=== PATIENT | male | born 1995 | race American Indian/Alaskan Native ===

== ENCOUNTER 2021-07-04 21:57 | Emergency (ER) | payer SELFPAY | END 2021-07-05 02:20 | disposition left against medical advice (07) | LOC: ED 21:57 | DX: R52 Pain, unspecified (principal); Z53.21 Procedure and treatment not carried out due to patient leaving prior to being seen by health care provider ==

== ENCOUNTER 2021-12-09 11:29 | Emergency (ER) | payer SELFPAY ==
--- NOTE | 2021-12-09 11:54 | Emergency Department Report ---
ED Chest Pain HPI - General Chief Complaint: Chest Pain Stated Complaint: LEFT ARM AND SHOULDER PAIN Time Seen by Provider: 12/09/21 11:52 Source: patient Mode of arrival: Ambulatory Limitations: No Limitations - History of Present Illness Initial Comments: 26-year-old -[place] male presents emerged department complaining of chest pain from the left side radiating across the chest to the mid chest and a sharp achy fashion of unknown etiology. Initially occurred while he was smoking and since continue to wax and wane since the onset associated with some vague shortness of breath. Reports no hemoptysis no hematemesis hematochezia, no fever, chills, sweats. No abdominal pain, no diarrhea no weight loss no foreign travel, no lower extremity swelling no pre-existing cardiopulmonary issues. MD Complaint: chest pain Onset: during rest Pain Location: left chest Severity: mild, moderate Quality: aching, sharp Improves With: nothing Worsens With: nothing re: dyspnea. denies: nausea, vomting, diaphoresis Other Symptoms: denies: syncope, rash, acid taste in mouth, palpitations, burping Treatments Prior to Arrival: other (motrin) - Related Data On Oral Contraceptives: No Previous Rx's Medication Instructions Recorded Last Taken Type Ketorolac [Toradol] 10 mg PO Q6H PRN #10 12/09/21 Unknown Rx Allergies Allergy/AdvReac Type Severity Reaction Status Date / Time No Known Allergies Allergy Unverified 12/09/21 11:44 Heart Score - HEART Score History: Slightly suspicious EKG: Normal Age: < 45 Risk factors: 1-2 risk factors Troponin: < normal limit HEART Score: 1 - EKG Read Time Time EKG Completed: 11:52 EKG Read Time: 11:57 ED Review of Systems ROS: Stated complaint: LEFT ARM AND SHOULDER PAIN Other details as noted in HPI Comment: All other systems reviewed and negative ED Past Medical Hx - Social History Smoking Status: Never Smoker Substance Use Type: Marijuana - Medications Home Medications: Home Medications Medication Instructions Recorded Confirmed Last Taken Type Ketorolac [Toradol] 10 mg PO Q6H PRN #10 12/09/21 Unknown Rx ED Physical Exam - General Limitations: No Limitations General appearance: alert, in no apparent distress - Head Head exam: Present: atraumatic, normocephalic - Eye Eye exam: Present: normal appearance - ENT ENT exam: Present: mucous membranes moist - Neck Neck exam: Present: normal inspection, full ROM - Respiratory Respiratory exam: Present: normal lung sounds bilaterally. Absent: respiratory distress, chest wall tenderness - Cardiovascular Cardiovascular Exam: Present: regular rate, normal rhythm. Absent: systolic murmur, diastolic murmur, rubs, gallop - GI/Abdominal GI/Abdominal exam: Present: soft, normal bowel sounds - Rectal Rectal exam: Present: deferred - Extremities Exam Extremities exam: Present: normal inspection - Back Exam Back exam: Present: normal inspection - Neurological Exam Neurological exam: Present: alert, oriented X3 - Psychiatric Psychiatric exam: Present: normal affect, normal mood - Skin Skin exam: Present: warm, dry, intact, normal color. Absent: rash ED Course Vital Signs 12/09/21 11:41 Temperature 98.5 F Pulse Rate 97 H Respiratory 18 Rate Blood Pressure 169/97 O2 Sat by Pulse 98 Oximetry JOHNSON score - Johnson Score Age > 65: (0) No Aspirin use within the Past 7 Days: (0) No 3 or more CAD Risk Factors: (0) No 2 or more Angina events in past 24 hrs: (0) No Known CAD with more than 50% Stenosis: (0) No Elevated Cardiac Markers: (0) No ST Deviation Greater than 0.5mm: (0) No JOHNSON Score: 0 ED Medical Decision Making - Lab Data Result diagrams: 12/09/21 12:24 12/09/21 12:24 - Radiology Data Radiology results: report reviewed Chest x-ray normal - Medical Decision Making This patient presents with chest pain that is very unlikely angina or acute coronary syndrome. The emergency department evaluation has not identified any cause for suspicion that this chest pain has a cardiac etiology. Based on their history, EKG (which showed no evidence of ischemia or infarction) and imaging, in addition to the patient's physical exam, I see no evidence at this time for a malignant etiology for the patient's chest pain. There is no acute evidence for pulmonary embolus, acute myocardial infarction, pneumothorax, Boerhaeve syndrome, cardiac tamponade, thoracic artery dissection, or any other emergent cardiac, pulmonary or aortic pathology. Given the low pre-test probability for cardiac etiology of chest pain and the absence of any sign of ischemia or infarction, discharge for outpatient follow-up and further evaluation is reasonable. I have explained to the patient that even though a cardiac problem is very unlikely, follow-up and further testing is required to reduce further the already small uncertainty that exists. Other life-threatening diagnoses have been considered. The patient understands the need to return immediately if their symptoms worsen or they develop any new symptoms, and not to engage in any significant exertional activity until follow-up is obtained. Critical care attestation.: If time is entered above; I have spent that time in minutes in the direct care of this critically ill patient, excluding procedure time. ED Disposition Clinical Impression: Chest pain Disposition: HOME / SELF CARE / HOMELESS Is pt being admited?: No Does the pt Need Aspirin: No Condition: Stable Instructions: Nonspecific Chest Pain, Adult Additional Instructions: You were evaluated emergency department today for chest pain. Your evaluation has shown no medicals conditions requiring emergent intervention at this time, however recommend that you follow-up with your primary care physician or your tower observer soon as possible for further testing as an outpatient. Please schedule an appointment for follow-up with your primary care physician as soon as possible. Return to emergency department if you expands worsening uncontrolled chest pain, shortness of breath, lightheadedness, feeling faint, nausea, vomiting or any other concerning symptoms. Prescriptions: Ketorolac [Toradol] 10 mg PO Q6H PRN #10 PRN Reason: Pain Referrals: JERRICA LOVE MD [Staff Physician] - 3-5 Days (Please follow-up with cardiology for possible stress test)
--- NOTE | 2021-12-09 12:26 | XRay Report ---
CHEST 2 VIEWS INDICATION / CLINICAL INFORMATION: Chest Pain. COMPARISON: None available. FINDINGS: SUPPORT DEVICES: None. HEART / MEDIASTINUM: No significant abnormality. LUNGS / PLEURA: No significant pulmonary abnormality. No significant pleural effusion. No pneumothora x. ADDITIONAL FINDINGS: No significant additional findings. IMPRESSION: 1. No acute abnormality of the chest. Signer Name: Santo Hopkins MD Signed: 12/09/2021 12:22 PM Workstation Name: [id number]
[2021-12-09 12:36] LABS: Basophils # (Auto) 0.1 K/mm3 (0.0-0.1); Eosinophils % (Auto) 0.2 % (0.0-4.3); Hematocrit 43.9 % (35.5-45.6); Lymphocytes # (Auto) 2.8 K/mm3 (1.2-5.4); Lymphocytes % (Auto) 40.2 % (13.4-35.0); Mean Corpuscular HGB Conc 34 % (32-34); Mean Corpuscular Volume 93 fl (84-94); Monocytes # (Auto) 0.8 K/mm3 (0.0-0.8); Monocytes % (Auto) 11.1 % (0.0-7.3); Platelet Count 356 K/mm3 (140-440); Red Blood Count 4.73 M/mm3 (3.65-5.03); Red Cell Distribution Width 12.7 % (13.2-15.2)
[2021-12-09 12:45] LABS: INR 0.88 (0.87-1.13)
[2021-12-09 13:05] LABS: Alanine Aminotransferase 27 units/L (7-56); Albumin 4.6 g/dL (3.9-5); BUN/Creatinine Ratio 8; Blood Urea Nitrogen 9 mg/dL (9-20); Hemolysis Index 6
[2021-12-09 16:37] VITALS: BP 170/90
--- NOTE | 2021-12-11 15:11 | Electrocardiograph Report ---
[facility] Test Date: 2021-12-09 Test Time: 11:45:24 Pat Name: GAURAV SMITH Department: Room: Gender: M [employer] Consultant: SADI : 1995 Requested By: YESICA VICTORIA Order Number: [id number] Reading MD: Oneil Blanca Measurements Intervals [place] Rate: 93 P: 60 DC: 165 QRS: 42 QRSD: 77 T: -4 QT: 332 QTc: 412 Interpretive Statements Sinus rhythm Left atrial enlargement No previous ECG available for comparison Electronically Signed On 12-11-2021 15:11:15 EDT by Oneil Blanca
== END 2021-12-09 16:37 | disposition home or self-care (01) ==
LOC: ED 11:29
DX: R07.9 Chest pain, unspecified (principal)
CPT/HCPCS: 36415; 71046; 80053; 84484; 85025; 85610; 93005; 99283

== ENCOUNTER 2022-02-23 16:02 | Emergency (ER) | payer SELFPAY ==
--- NOTE | 2022-02-23 16:36 | Event Note ---
ED Screening Note Date of service: 02/23/22 Time: 16:32 ED Screening Note: This initial assessment/diagnostic orders/clinical plan/treatment(s) is/are subject to change based on patients health status, clinical progression and re- assessment by fellow clinical providers in the ED. Further treatment and workup at subsequent clinical providers discretion. Patient/guardian urged not to elope from the ED as their condition may be serious if not clinically assessed and managed. Patient with chest pain for 2 months and worse for 4 days. No N/V/Diasphoresis. Tight with sharp twinges. 9/10 at worst 3/10 now. Took ASA 325 at 1pm and 3pm. No hx DM, HTN, HLD, CAD.+Obesity. MJ no tobacco. No stimulants. No FH CAD at age < 50. Initial orders include: My Active Orders 02/23/22 16:31 EKG (12 lead) Stat Complete Blood Count Auto Diff Stat Comprehensive Metabolic Panel Stat Lipase Stat Troponin T Stat XR chest routine 2V Urgent 02/23/22 16:32 Tech to do EKG .once
--- NOTE | 2022-02-23 17:00 | XRay Report ---
CHEST 2 VIEWS INDICATION / CLINICAL INFORMATION: Chest Pain. COMPARISON: 12/09/2021 FINDINGS: SUPPORT DEVICES: None. HEART / MEDIASTINUM: No significant abnormality. LUNGS / PLEURA: No significant pulmonary or pleural abnormality. No pneumothorax. ADDITIONAL FINDINGS: No significant additional findings. IMPRESSION: 1. No acute findings. Signer Name: Vikas Acevedo MD Signed: 02/23/2022 4:56 PM Workstation Name: [email or web address] [id number]
[2022-02-23 21:27] LABS: Basophils # (Auto) 0.1 K/mm3 (0.0-0.1); Basophils % (Auto) 0.8 % (0.0-1.8); Eosinophils # (Auto) 0.1 K/mm3 (0.0-0.4); Eosinophils % (Auto) 0.8 % (0.0-4.3); Hematocrit 44.8 % (35.5-45.6); Hemoglobin 15.2 gm/dl (11.8-15.2); Lymphocytes # (Auto) 3.8 K/mm3 (1.2-5.4); Lymphocytes % (Auto) 46.9 % (13.4-35.0); Mean Corpuscular HGB Conc 34 % (32-34); Mean Corpuscular Volume 93 fl (84-94); Monocytes # (Auto) 0.9 K/mm3 (0.0-0.8); Monocytes % (Auto) 11.6 % (0.0-7.3); Platelet Count 352 K/mm3 (140-440); Red Blood Count 4.83 M/mm3 (3.65-5.03)
[2022-02-23 21:42] LABS: Alanine Aminotransferase 28 units/L (7-56); Albumin 4.9 g/dL (3.9-5); BUN/Creatinine Ratio 7; Blood Urea Nitrogen 8 mg/dL (9-20); Hemolysis Index 6
--- NOTE | 2022-02-23 22:16 | Emergency Department Report ---
HPI - General Chief Complaint: Chest Pain Time Seen by Provider: 02/23/22 21:21 - HPI HPI: Room 42 The patient is a 26-year-old male present with a chief complaint of chest pain. Patient states he was he is intermittent left chest pain for the past 4 days. Patient describes the pain as a tightness with a sharp component. Patient denies shortness of breath, nausea/vomiting or diaphoresis with this pain. Patient denies cough or pleurisy. Patient denies history of fever. Patient denies any recent flights/long car trips. Patient currently gives his pain a score 7/10. Patient states he is never had a stress test or cardiac catheterization. Patient states he is unaware of any family history of premature heart disease ED Past Medical Hx - Past Medical History Previous Medical History?: No - Surgical History Past Surgical History?: No - Family History Family history: no significant - Social History Smoking Status: Never Smoker Substance Use Type: Marijuana - Medications Home Medications: Home Medications Medication Instructions Recorded Confirmed Last Taken Type Ketorolac [Toradol] 10 mg PO Q6H PRN #10 12/09/21 Unknown Rx Cyclobenzaprine [Flexeril] 10 mg PO TID PRN #14 02/23/22 Unknown Rx Famotidine [Pepcid] 20 mg PO BID #30 tablet 02/23/22 Unknown Rx ED Review of Systems ROS: Stated complaint: CHEST PAIN Other details as noted in HPI Constitutional: denies: diaphoresis, fever Eyes: denies: eye pain ENT: denies: throat pain Respiratory: denies: cough, shortness of breath Cardiovascular: chest pain Endocrine: no symptoms reported Gastrointestinal: denies: nausea, vomiting Genitourinary: denies: dysuria Musculoskeletal: denies: back pain Neurological: denies: headache Physical Exam - Physical Exam Vital Signs: Vital Signs 02/23/22 16:28 Temperature 98 F Pulse Rate 83 Respiratory 16 Rate Blood Pressure 155/99 [Left] O2 Sat by Pulse 100 Oximetry Physical Exam: GENERAL: The patient is well-developed well-nourished male sitting in chair not appearing to be in acute distress. [] HEENT: Normocephalic. Atraumatic. Extraocular motions are intact. Patient has moist mucous membranes. NECK: Supple. Trachea midline CHEST/LUNGS: Clear to auscultation. There is no respiratory distress noted. HEART/CARDIOVASCULAR: Regular. There is no tachycardia. There is no gallop rub or murmur. ABDOMEN: Abdomen is soft, nontender. Patient has normal bowel sounds. There is no abdominal distention. SKIN: There is no rash. There is no edema. There is no diaphoresis. NEURO: The patient is awake, alert, and oriented. The patient is cooperative. The patient has no focal neurologic deficits. The patient has normal speech. GCS 15 MUSCULOSKELETAL: There is no evidence of acute injury. ED Course Vital Signs 02/23/22 16:28 Temperature 98 F Pulse Rate 83 Respiratory 16 Rate Blood Pressure 155/99 [Left] O2 Sat by Pulse 100 Oximetry ED Medical Decision Making - Lab Data Result diagrams: 02/23/22 20:24 02/23/22 20:24 Laboratory Tests 02/23/22 02/23/22 02/23/22 20:24 20:24 22:22 WBC 8.1 RBC 4.83 Hgb 15.2 Hct 44.8 MCV 93 MCH 32 MCHC 34 RDW 13.0 L Plt Count 352 Lymph % (Auto) 46.9 H [place] % (Auto) 11.6 H Eos % (Auto) 0.8 Baso % (Auto) 0.8 Lymph # (Auto) 3.8 [place] # (Auto) 0.9 H Eos # (Auto) 0.1 Baso # (Auto) 0.1 Seg Neutrophils % 39.9 L Seg Neutrophils # 3.2 D-Dimer < 135 Sodium 137 Potassium 4.1 Chloride 97.9 L Carbon Dioxide 23 Anion Gap 20 BUN 8 L Creatinine 1.1 Estimated GFR > 60 BUN/Creatinine Ratio 7 Glucose 82 Calcium 10.0 Total Bilirubin 0.80 AST 20 ALT 28 Alkaline Phosphatase 88 Troponin T < 0.010 Total Protein 7.9 Albumin 4.9 Albumin/Globulin Ratio 1.6 Lipase 15 - Radiology Data Radiology results: report reviewed (Chest x-ray), image reviewed (Chest x-ray) interpreted by me: Chest x-ray-no definite focal infiltrates, no pneumothorax [facility] [address] [place] [address] XRay Report Signed Patient: GAURAV SMITH MR# : [id number] : 1995 Acct:[id number] Age/Sex: 26 / M ADM Date: 02/23/22 Loc: ED Attending Dr: Ordering Physician: JACLYN REZA Date of Service: 02/23/22 Procedure(s): XR chest routine 2V Accession Number(s): [id number] cc: JACLYN REZA Fluoro Time In Minutes: CHEST 2 VIEWS INDICATION / CLINICAL INFORMATION: Chest Pain. COMPARISON: 12/09/2021 FINDINGS: SUPPORT DEVICES: None. HEART / MEDIASTINUM: No significant abnormality. LUNGS / PLEURA: No significant pulmonary or pleural abnormality. No pneumothorax. ADDITIONAL FINDINGS: No significant additional findings. IMPRESSION: 1. No acute findings. Signer Name: Vikas Acevedo MD Signed: 02/23/2022 4:56 PM Workstation Name: [id number] Transcribed By: ANTONIO Dictated By: Vikas Acevedo MD Electronically Authenticated By: Vikas Acevedo MD Signed Date/Time: 02/23/221655 DD/ 54 TD/TT: - Differential Diagnosis Costochondritis, GERD, ACS, PE, pericarditis Critical care attestation.: If time is entered above; I have spent that time in minutes in the direct care of this critically ill patient, excluding procedure time. ED Disposition Clinical Impression: Atypical chest pain Disposition: 01 HOME / SELF CARE / HOMELESS Is pt being admited?: No Does the pt Need Aspirin: No Condition: Stable Instructions: Nonspecific Chest Pain, Adult Additional Instructions: Return to the emergency department should you develop worsening symptoms, inability to tolerate food or liquids, high fever or any other concerns Prescriptions: Cyclobenzaprine [Flexeril] 10 mg PO TID PRN #14 PRN Reason: Muscle Spasm Famotidine [Pepcid] 20 mg PO BID #30 tablet Referrals: [facility] [Provider Group] - 3-5 Days Time of Disposition: 23:26 Heart Score - HEART Score History: Slightly suspicious EKG: Non-specific Age: < 45 Risk factors: No known risk factors Troponin: < normal limit HEART Score: 1 - EKG Read Time Time EKG Completed: 20:13 EKG Read Time: 20:17
[2022-02-23] MEDS ORDERED: CYCLOBENZAPRINE 10 MG TAB PO ONE (23:40)
[2022-02-23] MEDS ORDERED: FAMOTIDINE 20 MG TAB PO ONE (23:40)
[2022-02-23 23:53] VITALS: BP 143/87
--- NOTE | 2022-02-24 11:39 | Electrocardiograph Report ---
[facility] Test Date: 2022-02-23 Test Time: 20:13:25 Pat Name: GAURAV SMITH Department: Room: Gender: M Client Solutions Director: KAEL : 1995 Requested By: CHRISTOPHER ESQUEDA Order Number: [id number] Reading MD: Eh Elizondo Measurements Intervals [place] Rate: 65 P: 45 NM: 152 QRS: 54 QRSD: 85 T: 6 QT: 374 QTc: 391 Interpretive Statements Sinus rhythm Compared to ECG 12/09/2021 11:45:24 Atrial abnormality no longer present inferior t wa Electronically Signed On 02-24-2022 8:39:07 PDT by Eh Elizondo
== END 2022-02-24 00:35 | disposition home or self-care (01) ==
LOC: ED 16:02
DX: R07.89 Other chest pain (principal); F12.90 Cannabis use, unspecified, uncomplicated
CPT/HCPCS: 36415; 71046; 80053; 83690; 84484; 85025; 85379; 93005; 99284